=== PATIENT | female | born 1980 | race Caucasian/White ===

== ENCOUNTER → 2016-11-16 | Outpatient (CLI) | payer MEDICAID ==
[2016-11-16 09:19] LABS: Basophils % (A) 0 %; CH 30.1; CHCM 34.4; Eosinophils # (A) 0.1 k/uL (0-0.7); Eosinophils % (A) 1 %; HCT 39.4 % (34.0-46.0); HDW 2.35; HGB 13.6 gm/dL (11.4-16.0); Luc # (Auto) 0.14; Luc % (Auto) 2; Lymphocytes # (A) 2.4 k/uL (1.0-4.8); Lymphocytes % (A) 33 %; MCH 30.3 pg (25.0-35.0); MCHC 34.5 g/dL (31.0-37.0); MCV 87.9 fL (80.0-100.0); Mean Platelet Volume 7.2; Monocytes # (A) 0.4 k/uL (0-1.0); Monocytes % (A) 6 %; Neutrophils # (A) 4.4 k/uL (1.3-7.7); Neutrophils % (A) 59 %; RBC 4.49 m/uL (3.80-5.40); RDW 13.2 % (11.5-15.5); WBC 7.4 k/uL (3.8-10.6); WBC (Perox) 7.45
[2016-11-16 09:24] LABS: ALT 32 U/L (9-52); AST 30 U/L (14-36); Alkaline Phosphatase 60 U/L (38-126); Anion Gap 12 mmol/L; Blood Urea Nitrogen 14 mg/dL (7-17); Calcium 9.6 mg/dL (8.4-10.2); Carbon Dioxide 24 mmol/L (22-30); Chloride 105 mmol/L (98-107); Cholesterol 206 mg/dL (<200); Glucose 85 mg/dL (74-99); HDL Cholesterol 54 mg/dL (40-60); Non-African American GFR(MDRD) >60 (>60 ml/min/1.73 sqM); Potassium 4.2 mmol/L (3.5-5.1); Sodium 141 mmol/L (137-145); Total Bilirubin 0.8 mg/dL (0.2-1.3); Total Protein 7.8 g/dL (6.3-8.2); Triglycerides 118 mg/dL (<150)
== END | disposition home or self-care (01) ==
LOC: LABWHC1 08:51
PROVIDERS: ATTEND Family Medicine
DX: Z00.00 Encounter for general adult medical examination without abnormal findings (principal)
CPT/HCPCS: 36415; 80053; 80061; 84439; 84443; 84480; 85025

== ENCOUNTER → 2017-12-13 | Outpatient (CLI) | payer MEDICAID ==
[2017-12-13 08:56] LABS: Basophils % (A) 0 %; Eosinophils # (A) 0.1 k/uL (0-0.7); Eosinophils % (A) 1 %; HCT 37.1 % (34.0-46.0); HGB 12.9 gm/dL (11.4-16.0); Lymphocytes % (A) 26 %; MCH 29.7 pg (25.0-35.0); MCHC 34.7 g/dL (31.0-37.0); MCV 85.5 fL (80.0-100.0); Mean Platelet Volume 6.9; Monocytes # (A) 0.5 k/uL (0-1.0); Monocytes % (A) 7 %; Neutrophils # (A) 4.9 k/uL (1.3-7.7); Neutrophils % (A) 65 %; Platelet Count 259 k/uL (150-450); RBC 4.34 m/uL (3.80-5.40); RDW 12.5 % (11.5-15.5); WBC 7.5 k/uL (3.8-10.6)
[2017-12-13 10:08] LABS: ALT 32 U/L (9-52); AST 29 U/L (14-36); Albumin 4.3 g/dL (3.5-5.0); Alkaline Phosphatase 52 U/L (38-126); Anion Gap 8 mmol/L; Blood Urea Nitrogen 12 mg/dL (7-17); Carbon Dioxide 26 mmol/L (22-30); Chloride 106 mmol/L (98-107); Cholesterol 203 mg/dL (<200); Glucose 91 mg/dL (74-99); HDL Cholesterol 47 mg/dL (40-60); LDL Cholesterol,Calculated 138 mg/dL (0-99); Potassium 4.3 mmol/L (3.5-5.1); Sodium 140 mmol/L (137-145); Total Bilirubin 0.6 mg/dL (0.2-1.3); Total Protein 7.1 g/dL (6.3-8.2); Triglycerides 91 mg/dL (<150)
[2017-12-13 10:23] LABS: T4, Free (Free Thyroxine) 1.25 ng/dL (0.78-2.19)
== END | disposition home or self-care (01) ==
LOC: LABWHC1 08:04
PROVIDERS: ATTEND Family Medicine
DX: Z00.00 Encounter for general adult medical examination without abnormal findings (principal); E03.9 Hypothyroidism, unspecified
CPT/HCPCS: 36415; 80053; 80061; 84439; 84443; 85025

== ENCOUNTER → 2019-05-22 | Outpatient (CLI) | payer MEDICAID ==
[2019-05-22 18:42] LABS: African American GFR (CKD) 92.7 (60.0-200.0); Albumin 4.9 g/dL (3.80-4.90); Albumin/Globulin Ratio 2.23 (1.60-3.17); Anion Gap 5.2 mmol/L (4.00-12.00); BUN/Creat Ratio 16.67 Ratio (12.00-20.00); Calcium 9.5 mg/dL (8.7-10.3); Carbon Dioxide 28.8 mmol/L (21.6-31.8); Chol/HDL Ratio 4.69; Globulin 2.2 g/dL (1.6-3.3); LDL Cholesterol,Calculated 150.6 mg/dL (0.0-131.0); Total Bilirubin 0.6 mg/dL (0.3-1.2); Total Protein 7.1 g/dL (6.2-8.2); VLDL Calculation 30.4 mg/dL (5.00-40.00)
[2019-05-22 18:50] LABS: T4, Free (Free Thyroxine) 1.4 ng/dL (0.80-1.80)
== END | disposition home or self-care (01) ==
LOC: LABWHC1 09:05
PROVIDERS: ATTEND Family Medicine
DX: Z00.00 Encounter for general adult medical examination without abnormal findings (principal)
CPT/HCPCS: 36415; 80053; 80061; 84439; 84443

== ENCOUNTER → 2019-10-23 | Outpatient (CLI) | payer MEDICAID ==
--- NOTE | 2019-10-23 08:11 | MR ---
MRI CERVICAL SPINE: CLINICAL HISTORY: Neck pain into bilateral shoulders with headache. TECHNIQUE: Multiplanar, multisequence imaging of the cervical spine is performed without IV contrast. COMPARISON: MRI cervical spine July 16, 2014 FINDINGS: Sagittal images of the cervical spine show the craniocervical junction to remain within nor mal limits. The cervical and upper thoracic spinal cord remains normal in caliber and signal. There is persistent generalized AP canal diameter narrowing greatest in the mid cervical spine. The verteb ral body heights remain normal. There is some reversal of normal cervical curvature with grade 1 ret rolisthesis C3 on C4, C4 on C5, and C5 on C6 are all redemonstrated. Mild disc space narrowing C4-C5 level on current study. Bone marrow signal intensity is preserved. Axial images show the C2-C3 level to remain within normal limits. Axial images at C3-C4 level show more prominent left paracentral disc protrusion effacing the anterol ateral thecal sac with additional right foraminal disc protrusion causing asymmetric mild to moderate right greater than left bilateral neural foraminal narrowing. Findings progressed from prior. Axial images at C4-C5 levels show spondylolisthesis with broad-based posterior disc protrusion effaci ng anterior thecal sac and causing mild to moderate right greater than left bilateral neural foramina l narrowing. No significant change from prior. Axial images at C5-C6 levels show spondylolisthesis and broad-based posterior disc protrusion effacin g the anterior thecal sac and causing moderate to advanced bilateral neural foraminal narrowing, no s ignificant change from prior. Axial images at C6-C7 level show more prominent right paracentral/foraminal disc protrusion effacing the anterolateral thecal sac and causing advanced right-sided neural foraminal narrowing. Left-sided neural foramina is patent. Axial images at C7-T1 level are within normal limits. IMPRESSION: Loss of normal cervical curvature with multilevel spondylolisthesis and degenerative marie ges, interval progression of degenerative findings noted C3-C4 and C6-C7 levels from the prior MRI.
== END | disposition home or self-care (01) ==
LOC: RADMRIMAIN 07:11
PROVIDERS: ATTEND Orthopaedic Surgery Orthopaedic Surgery of the Spine
DX: M43.12 Spondylolisthesis, cervical region (principal); M47.812 Spondylosis without myelopathy or radiculopathy, cervical region
CPT/HCPCS: 72141

== ENCOUNTER → 2019-11-12 | Outpatient (CLI) | payer MEDICAID ==
--- NOTE | 2019-11-12 13:07 | P.PAINCN ---
History of Present Illness - Reason for Consult Consult date: 11/12/19 - History of Present Illness This is a 39 years old female, with 2 month history of severe neck pain with radiation to the right upper extremity associated with numbness and tingling sensation, the symptoms started 2 months ago she denies any initiating event, patient reported that her symptoms associated with some weakness in her right upper extremity, she denies any fever or night sweats she denies any change in bowel movement or urination, patient done physical therapy without any benefit, she doesn't chiropractics also without any benefit. Past Medical History Past Medical History: Thyroid Disorder Additional Past Medical History / Comment(s): neck pain History of Any Multi-Drug Resistant Organisms: None Reported Past Surgical History: Cholecystectomy, Uterine Ablation Additional Past Surgical History / Comment(s): , D & C, Past Anesthesia/Blood Transfusion Reactions: Motion Sickness Smoking Status: Never smoker - Past Family History Mother Family Medical History: No Reported History Medications and Allergies Home Medications Medication Instructions Recorded Confirmed Type Ibuprofen [Motrin] 800 mg PO DAILY PRN 06/09/15 11/12/19 History Levothyroxine Sodium [Synthroid] 200 mcg PO DAILY 06/09/15 11/12/19 History Multivitamins, Thera [Multivitamin] 1 tab PO DAILY 06/09/15 11/12/19 History Allergies Allergy/AdvReac Type Severity Reaction Status Date / Time propoxyphene HCl Allergy facial Verified 11/12/19 12:42 [From Darvon] swelling Physical Exam Vitals: Vital Signs Pulse Resp BP 11/12/19 12:43 83 16 141/79 Physical Examinations : -Constitutiona : Cooperative , not in acute distress . -HEENT : nech : supple , no Lymphadenopathy , normal thyroid size . : eyes : no ptosis , no icterus, no photophobia . - neurologic : Cranial nerve II to XII intact , no focal neurological deffecit . -psychatric : alert , oriented X 3 , appropriate affect , intact judgment and insight . -Lymphatic : no Lymphadenopathy . - musculoskeltal : Cervical Spine motor stregnth in the deltoid and biceps, normal right side , normal Left side motor stregnth biceps and the wrist extensors normal right side ,normal left side . motor stregnth in the triceps muscle . normal Right side , normal Left side deep tendon reflexes normal at the biceps , normal at Brachioradialis , normal at triceps. cervical facet loading test= negative Bilaterally Spurling test= positive on the right side Neck distraction test= positive on the right side. Shana sign= positive on the right side. Lumber spine moter stegnth lower extremities ,thigh and legs 5/5 Right side , 5/5 Left side Results Comments: Abiola will the cervical spine= multilevel cervical bulging disc disease, and cervical spondylolisthesis Assessment and Plan Plan: Assessment and plan=1-cervical radiculopathy. 2-cervical bulging disc disease. 3-cervical spondylolisthesis. Patient could benefit from cervical epidural steroid injection at C7-T1 , (right paramedian approach ) Time with Patient: Greater than 30 PQRS Measure Charge Sheet Measure #130: Documentation of Current Meds in Medical Chart: Patient's medications documented in chart Measure #226: Tobacco Use: Screen & Cessation Intervention: Pt not a tobacco user Measure #111: Pneumonia Vaccination: Pneumococcal vaccine NOT administered or previously given Measure #47: Advance Care Plan: Advance care planning discussed & documented, pt chose/unable to give Measure #412: Opioid Treatment Agreement: No documentation of signed opioid treatment agreement Measure #408: Opioid Therapy Follow-up Evaluation: Patient had NO f/u eval minimum every 3 months during opioid therapy Measure #317: Preventitive Care & Scrn High Bld Press & F/U: Pre-hypertensive or hypertensive BP documented, pt will f/u with PCP Measure #128: Body Mass Index (BMI) Screening & Follow-up: BMI documented ABOVE normal parameters - f/u documented Measure #131: Pain Assessment & Follow-up: Pain positive & plan documented, Follow-up scheduled Measure #431: Unhealthy Alcohol Use Preventative Care & Scrn: Patient not identified as an unhealthy alcohol user PQRS Narrative: Smoking Status Never smoker Blood Pressure 141/79 Pain Intensity [Right Lower 5 Neck] Scale Used Numeric (1 - 10) Hx Alcohol Use (MH) Yes Home Medications: Ambulatory Orders Ibuprofen [Motrin] 800 mg PO DAILY PRN 06/09/15 Levothyroxine Sodium [Synthroid] 200 mcg PO DAILY 06/09/15 Multivitamins, Thera [Multivitamin] 1 tab PO DAILY 06/09/15
== END | disposition home or self-care (01) ==
CPT/HCPCS: 99211

== ENCOUNTER 2019-11-26 12:50 | Day surgery (SDC) | payer MEDICAID ==
[2019-11-25 08:57] VITALS: BMI 26.5
[2019-11-26 13:30] VITALS: RESP 16
[2019-11-26 13:31] VITALS: TEMP 97.2
[2019-11-26] MEDS ORDERED: LACTATED RINGERS 1,000 ML IV SCH (13:33)
[2019-11-26] MEDS ORDERED: LIDOCAINE 1% (10MG/ML) FOR IV START INTRADERMA ONE (13:39)
[2019-11-26] MEDS ORDERED: MIDAZOLAM 2 MG/2 ML VIAL ONE (14:00)
[2019-11-26] MEDS ORDERED: DEXAMETHASONE SOD PHOSPHATE 10 MG/ML 1 ML VIAL ONE (14:00)
[2019-11-26] MEDS ORDERED: IOPAMIDOL M200 10 ML VIAL ONE (14:00)
[2019-11-26] MEDS ORDERED: fentaNYL (PF) 50 MCG/ML 2 ML AMP ONE (14:00)
--- NOTE | 2019-11-26 14:23 | P.PCN ---
Date of Procedure: 11/26/19 Procedure(s) Performed: Diagnosis: Cervical radiculopathy Cervical degenerative disc disease POSTOPERATIVE DIAGNOSIS: Diagnoses: Cervical radiculopathy Cervical degenerative disc disease PROCEDURE Cervical Epidural steroid injection under fluoroscopic guidance at the C7-T1 interspace using right paramedian approach Cervical epidurogram ANESTHESIA: Local with 1% lidocaine 3 ml and IV sedation with Versed and fentanyl, sedation time 6 minutes Fluoroscopy was used for the procedure and images were saved in the radiology portion of the chart. EBL: Minimal PROCEDURE INDICATION: The patient presents with cervical radicular symptoms unresponsive to conservative treatment. This is the first cervical epidural steroid injection. PROCEDURE DESCRIPTION / TECHNIQUE: The patient was seen and identified in the preoperative area. Risks, benefits, complications including but not limited to infections ,bleeding ,allergic reaction to the medications ,nerve damage and incomplete pain relief, and alternatives were discussed with the patient. The patient agreed to proceed with the procedure and signed the consent. IV was started, and vital signs were stable. Patient was taken to the OR and time out was completed. The patient was placed in the prone position on procedure table and a pillow was placed under the chest area. The cervical area was prepped and draped in the usual sterile fashion. Conscious sedation was used during the procedure to decrease patients anxiety. Vital signs was monitored during the entire procedure. Using anterior-posterior fluoroscopy, the C7-T1 interlaminar space was identified and the skin over this site was marked and then infiltrated with 1% lidocaine subcutaneously. Subsequently, a 20-gauge Tuohy epidural needle was inserted and advanced toward the epidural space using the loss of resistance technique and guided by AP and 50 oblique fluoroscopy. The correct needle position in the epidural space was verified. After negative aspiration for blood and CSF and in the absence of paresthesias, Isovue 200 2 mL's was injected under live fluoroscopy with good epidural spread. After negative aspiration, a 5 ml mixture containing 10 mg of dexamethasone, 3 mL of preservative free normal saline and 1 mL of 1% lidocaine was injected. Needle was withdrawn intact, skin was cleansed, and bandages were applied. COMPLICATIONS: None DISPOSITION / PLANS: The patient was placed in a supine position and transferred to the recovery area in a stable condition for observation. There was no evidence of lower extremity motor or sensory deficit after the procedure. Patient was discharged from the recovery room after meeting discharge criteria. Home discharge instructions were given to the patient by the staff. The patient will be scheduled a follow-up in the clinic in 2-4 weeks.
--- NOTE | 2019-11-26 14:33 | FL ---
EXAMINATION TYPE: FL guided pain mgmt statistic DATE OF EXAM: 11/26/2019 HISTORY: Fluoroscopy time 5 seconds of fluoroscopy provided. IMPRESSION: 1. Fluoroscopy time.
[2019-11-26 14:34] VITALS: BP 122/74; PULSE 68
[2019-11-26] MEDS ORDERED: IV FLUID CONTINUATION 1,000 ML IV ONE (14:36)
== END 2019-11-26 14:51 | disposition home or self-care (01) ==
LOC: ORPAIN 12:50
PROVIDERS: ATTEND Anesthesiology
DX: M50.10 Cervical disc disorder with radiculopathy, unspecified cervical region (principal)
CPT/HCPCS: 81025; 62321; J2250; J1100; J3010; Q9966

== ENCOUNTER → 2019-12-28 | Outpatient (CLI) | payer MEDICAID ==
[2019-12-28 16:37] LABS: Appearance,Urine Clear (Clear); Bilirubin,Urine Negative (Negative); Blood,Urine Negative (Negative); Color,Urine Colorless; Glucose,Urine (UA) Negative (Negative); Ketones,Urine Negative (Negative); Leukocyte Esterase,Urine Negative (Negative); Nitrite,Urine Negative (Negative); Protein,Urine Negative (Negative); Specific Gravity,Urine 1.003 (1.001-1.035); Urobilinogen,Urine <2.0 mg/dL (<2.0)
[2019-12-28 16:41] LABS: African American GFR (CKD) >90 (>60 ml/min/1.73 sqM); Anion Gap 8 mmol/L; Blood Urea Nitrogen 13 mg/dL (7-17); Calcium 9.5 mg/dL (8.4-10.2); Carbon Dioxide 25 mmol/L (22-30); Chloride 103 mmol/L (98-107); Glucose 92 mg/dL (74-99); Non-African American GFR(CKD) >90 (>60 ml/min/1.73 sqM); Sodium 136 mmol/L (137-145)
[2019-12-28 16:42] LABS: Basophils % (A) 1 %; Eosinophils # (A) 0.1 k/uL (0-0.7); Eosinophils % (A) 1 %; HCT 38.1 % (34.0-46.0); HGB 12.4 gm/dL (11.4-16.0); Lymphocytes # (A) 2.4 k/uL (1.0-4.8); Lymphocytes % (A) 29 %; MCH 28.8 pg (25.0-35.0); MCHC 32.7 g/dL (31.0-37.0); Mean Platelet Volume 7.4; Monocytes # (A) 0.4 k/uL (0-1.0); Monocytes % (A) 5 %; Neutrophils # (A) 5.3 k/uL (1.3-7.7); Neutrophils % (A) 63 %; Platelet Count 281 k/uL (150-450); RBC 4.33 m/uL (3.80-5.40); RDW 12.3 % (11.5-15.5); WBC 8.4 k/uL (3.8-10.6)
--- NOTE | 2019-12-28 16:46 | XR ---
EXAMINATION TYPE: XR chest 2V DATE OF EXAM: 12/28/2019 CLINICAL HISTORY: Preoperative clearance for cervical spine surgery. TECHNIQUE: Frontal and lateral views of the chest are obtained. COMPARISON: 04/14/2012 chest radiograph. FINDINGS: The cardiomediastinal silhouette is within normal limits for size. Pulmonary vasculature i s normal. There is no focal air space opacity, pleural effusion, or pneumothorax seen. The osseous st ructures are intact. IMPRESSION: No acute cardiopulmonary process.
[2019-12-28 16:58] LABS: INR 0.9 (<1.2); Partial Thromboplastin Time 23.4 sec (22.0-30.0); Prothrombin Time 9.5 sec (9.0-12.0)
== END | disposition home or self-care (01) ==
LOC: LABPAT 15:44
PROVIDERS: ATTEND Orthopaedic Surgery Orthopaedic Surgery of the Spine
DX: Z01.818 Encounter for other preprocedural examination (principal)
CPT/HCPCS: 36415; 71046; 80048; 81003; 85025; 85610; 85730; 93005

== ENCOUNTER 2020-01-13 12:44 | Observation (INO) | payer MEDICAID ==
[2020-01-11 14:30] VITALS: BMI 26.8
[~2020-01-13 12:44] MED LIST: FAMOTIDINE 20 MG/2 ML VIAL IV PRN; ONDANSETRON 4 MG/2 ML VIAL IVP PRN; ceFAZolin 1,000 MG in SODIUM CHLORIDE 0.9% IRRIGATIO 1,000 ML IRRIGATION ONE
[2020-01-13] MEDS ORDERED: ONDANSETRON 4 MG/2 ML VIAL ONE (13:17)
[2020-01-13] MEDS: LACTATED RINGERS 1,000 ML IV SCH ×2 (13:19→19:20)
[2020-01-13] MEDS ORDERED: LIDOCAINE 1% (10MG/ML) FOR IV START IV ONE (13:19)
[2020-01-13 13:31] LABS: Glucose,Whole Blood 99 mg/dL (75-99)
[2020-01-13] MEDS ORDERED: MIDAZOLAM 2 MG/2 ML VIAL IV ONE (13:37)
[2020-01-13] MEDS ORDERED: SCOPOLAMINE 1.5MG/72HR PATCH TRANSDERM ONE (13:37)
[2020-01-13] MEDS ORDERED: LIDOCAINE 1% INJ 10MG/ML (20 ML MDV) ONE (14:18)
[2020-01-13] MEDS ORDERED: DEXAMETHASONE SOD PHOSPHATE 10 MG/ML 1 ML VIAL ONE (14:18)
[2020-01-13] MEDS ORDERED: fentaNYL (PF) 50 MCG/ML 2 ML AMP ONE (14:18)
[2020-01-13] MEDS ORDERED: ROCURONIUM BROMIDE 10 MG/ML 5 ML VIAL IV ONE (14:18)
[2020-01-13] MEDS ORDERED: KETAMINE 10 MG/ML 20 ML VIAL ONE (14:18)
[2020-01-13] MEDS ORDERED: HYDROmorphone (PF) 1 MG/ML ONE (14:18)
[2020-01-13] MEDS ORDERED: PROPOFOL 10 MG/ML 20 ML VIAL IV ONE (14:18)
[2020-01-13] MEDS ORDERED: MIDAZOLAM 2 MG/2 ML VIAL ONE (14:18)
[2020-01-13] MEDS ORDERED: SUCCINYLCHOLINE CHLORIDE 100 MG/5 ML SYR IV ONE (14:18)
[2020-01-13] MEDS ORDERED: GELATIN SPONGE,ABSORB (LARGE) 1 EACH SPONGE MISCELLANE ONE (15:26)
[2020-01-13] MEDS ORDERED: LIDOCAINE 0.5%-EPI 1:200,000 50 ML VIAL SQ ONE ×2 (15:27)
[2020-01-13] MEDS ORDERED: THROMBIN (BOVINE) 5,000 UNIT VIAL TOPICAL ONE (15:27)
--- NOTE | 2020-01-13 15:29 | XR ---
EXAMINATION TYPE: XR cervical spine 1V DATE OF EXAM: 01/13/2020 COMPARISON: MRI cervical spine October 23, 2019 HISTORY: Neck pain. TECHNIQUE: Single crosstable lateral view of cervical spine is obtained intraoperatively. FINDINGS: Exam is not for diagnostic purposes for presurgical planning. Metallic pointer is noted at the C4-C5 disc space level. IMPRESSION: As above.
[2020-01-13] MEDS ORDERED: LACTATED RINGERS 1,000 ML IV ONE (16:28)
[2020-01-13] MEDS ORDERED: ONDANSETRON 4 MG/2 ML VIAL IVP PRN (16:52)
[2020-01-13] MEDS ORDERED: BENZOCAINE/MENTHOL LOZENG 1 EACH LOZENGE MUCOUS MEM PRN (16:52)
[2020-01-13] MEDS ORDERED: ACETAMINOPHEN TAB 325 MG TAB PO PRN (16:52)
[2020-01-13] MEDS ORDERED: HYDROmorphone 0.5 MG/0.5 ML SYRINGE IVP PRN (16:52)
[2020-01-13] MEDS ORDERED: HYDROmorphone 1 MG/ML 1 ML SYRINGE IVP PRN (16:52)
--- NOTE | 2020-01-13 16:57 | P.OP ---
Date of Procedure: 01/13/20 Preoperative Diagnosis: Herniated nucleus pulposis C3 4 C4 5 C5 6 C6 7, spondylolisthesis C3 4, early cervical myelopathy, upper extremity radiculopathy, neck pain, upper extremity weakness Postoperative Diagnosis: Same Anesthesia: GETA Pathology: none sent Condition: stable Disposition: PACU Description of Procedure: BRIEF OPERATIVE NOTE Preoperative Diagnosis:Herniated nucleus pulposis C3 4 C4 5 C5 6 C6 7, spondylolisthesis C3 4, early cervical myelopathy, upper extremity radiculopathy, neck pain, upper extremity weakness Postoperative Diagnosis: Same Procedure: Anterior cervical decompression with discectomy and fusion C3 4 C4 5 C5 6 C6 7 Placement of interbody graft C3 4 C4 5 C5 6 C6 7 Application of anterior cervical plate C3 4 567 Surgeon: Dr. Baltazar Film Sound Engineer: Toby Chapman is present throughout the entire the case persistence during positioning, dissection, exposure, visualization, and all crucial elements of the case as well as closure. Anesthesia: General anesthesia per Estimated blood loss: Approximately 30 mL Complications: None apparent Components implanted: K2M Patillas anterior cervical plate system with Vikos interbody allograft bone graft and 1 mL of DBS bone putty Disposition: To recovery room in good stable condition. OPERATIVE INDICATIONS The patient has had long-standing issues in their neck and upper extremities. She's been having significant worsening of her symptoms at her neck and her extremity over the past several months. This has kept her from doing many activities that she enjoys doing and posterior significant pain. The patient has been through conservative treatment. She is not having any prolonged benefit despite aggressive conservative care. We discussed various treatment options including surgery, and the patient wishes to proceed with surgery We discussed the risk, patient's alternatives and benefits of surgery including but not limited to, risk of bleeding risk of infection, risk of need for further surgery, risk of decreased, loss of motion, muscle function, malunion nonunion, hardware failure, nerve damage, paralysis, heart attack, and . OPERATIVE SUMMARY After discussing all the risks, patient alternatives and benefits at length, the patient elected to proceed with surgical intervention, signed informed consent, and presented for their procedure. The patient was seen and examined in the preoperative holding area and the surgical site was marked. The patient was given antibiotics and brought to the operating room. The patient was positioned on the operating room table in a supine position being careful to pad any bony prominences and pressure points. The patient was sedated and intubated by anesthesia in standard fashion. Once the airway and C- spine were stabilized the patient's arms were padded and tucked at her side, with her shoulders gently taped. The head was placed in a donut pad with the neck in good neutral alignment and position. We were careful to maintain the patient's cervical spine and good neutral alignment and position throughout. The patient was prepped and draped in a normal standard fashion. An appropriate timeout and keystone protocol performed. We were able to proceed with the surgery. The local wound area was infiltrated with local anesthetic. An incision was made transversely approximately 2-1/2 cm over the appropriate levels at the level of C5. Dissection was taken down subcutaneously to the level of the platysma which was split in line with its fibers. Dissection was taken with a carotid approach, with the trachea and esophagus medial and the carotid sheath laterally. We dissected down to the anterior surface of the vertebral bodies. With the horizontal incision I was able to expose from C3 to C7 Intraoperative x-ray was taken which showed a marker at the appropriate level at C4 5. With the appropriate level positively confirmed, we were able to proceed with discectomy at the appropriate levels. All of the operative levels were exposed appropriately from C3 to C7. The patient had all their twitches back, and there was no evidence of recurrent laryngeal issue. The wound was copiously irrigated and suctioned dry as had been done periodically throughout the case. At the appropriate level/levels, starting at C3 4 and then moving C4 5 and then C5 6 and C6 7 I established an annulotomy with an 11 blade scalpel. A discectomy was performed with a combination of pituitary rongeurs, curettes, a high-speed bur, and Kerrison rongeurs. The posterior longitudinal ligament was taken down as were any posterior osteophytes. At each level there was significant disc herniation with compression of the cord and foraminal encroachment. As able to remove the disc the posterior longitudinal ligament to get excellent central and bilateral foraminal decompression. I was able to remove any extruded disc fragments particular at C5 6 and C6 7. This gave good central and bilateral foraminal decompression. There is no evidence of any dural tear or leak. The endplates were prepared with a high-speed bur. With the endplates in good parallel position, I was able to size for the appropriate size interbody graft. The wound was irrigated and suctioned dry the graft was prepared and malleted into position. It had good alignment and position with the anterior surface flush with the anterior surface of the vertebral bodies. This was done similarly the appropriate levels from C3 4 and then moving caudad down C4 5 than 56 and 67. With the grafts intact, I was able to measure and contour and appropriate sized plate. The plate was positioned at the midline over the appropriate levels from C3 to C7 with a 77 mm plate. Screw holes were established with a hand drill and drill guide. Screws were placed in good alignment and position with excellent bony purchase. They were seated under the locking device. The construct was checked and found to be stable. Intraoperative x-ray was taken which showed good alignment and position of the implants at the appropriate levels from C3 to C7. There was no evidence of any dural tear or leak. Good hemostasis was maintained. The wound was copiously irrigated and suctioned dry as had been done periodically throughout the case. The platysma was closed with absorbable suture. The subcutaneous tissue was closed. The subcuticular tissue was closed with absorbable suture. The wound was cleaned and dried and dressed appropriately. A soft cervical collar was placed appropriately. The patient was woken up by anesthesia, extubated, transferred back gently to their hospital bed and brought to the recovery room in good stable condition. The patient will be admitted to the hospital for appropriate postoperative care, medical management and monitoring. We will continue to follow them closely about the postoperative course.
[2020-01-13] MEDS: HYDROmorphone 0.5 MG/0.5 ML SYRINGE IVP PRN ×4 (17:05→17:35)
[2020-01-13] MEDS ORDERED: ONDANSETRON 4 MG/2 ML VIAL IVP ONE (17:23)
--- NOTE | 2020-01-13 17:45 | XR ---
EXAMINATION TYPE: XR cervical spine 1V DATE OF EXAM: 01/13/2020 COMPARISON: Today HISTORY: Surgery TECHNIQUE: Single view FINDINGS: A single lateral view shows placement of a plate with multiple screws fusing anteriorly the cervical spine from C3 to C7. Vertebra have normal alignment. IMPRESSION: No complicating process seen.
[2020-01-13] MEDS: SODIUM CHLORIDE 0.9% 1,000 ML IV SCH (20:13)
[2020-01-13 23:41] VITALS: PULSE 68
[2020-01-14] MEDS: HYDROcodone/APAP 5-325MG 1 EACH TAB PO PRN ×2 (00:18→04:16)
[2020-01-14 04:46] VITALS: BP 137/87; RESP 18; TEMP 97.8
[2020-01-14] MEDS ORDERED: LEVOTHYROXINE 100 MCG TAB PO SCH (06:30)
--- NOTE | 2020-01-14 07:06 | P.DS ---
Providers Date of admission: 01/13/20 21:07 Attending physician: Megan Baltazar Primary care physician: Anne Marie [facility] Course: The patient presented on the day of admission as per their operative note. She had significant changes her cervical spine at multiple levels and was having severe significant radiculopathy. She underwent her anterior cervical decompression with discectomy and fusion from C3 to C7 yesterday as per her operative note. She says she is doing well. Her neck is sore and she has some soreness in her right arm but overall she has been improving and mobile and making good progress. She has been able to have some soft foods. She is voiding freely. Physical Exam The incision site is clean dry and intact. There is no erythema no drainage. There is no purulence no evidence of infection. Her neck is soft and supple wit hout any drainage. There is no signal with swelling. Abdomen soft and nontender. Chest has good excursion with deep inspiration and expiration. The patient has active and passive range of motion intact at the upper and lower extremities. There is no acute change in neurologic status. She has good motion in her bilateral upper extremities with good strength. Hospital Course Postoperative day 1 status post anterior cervical decompression with discectomy and fusion C3 4 C4 5 C5 6 C6 7 for her severe spinal stenosis with disc herniation upper extremity radiculopathy and neck pain. Patient is making good progress. The patient has been making good progress postoperatively. They have completed the prophylactic antibiotics without any signs or symptoms of infection. Her neck is soft and supple. The patient has been able to advance their diet, and is tolerating diet adequately. The pain was initially controlled with IV medications and is now controlled appropriately with oral medications. The patient has been able to increase their mobilization. The patient has progressed appropriately. I think they are in good stable condition for discharge today. They will be sent home with appropriate prescriptions. I answered their questions to the best of my ability in a language that they can understand and they are agreeable with the plan. They will follow up as directed in approximately 2 weeks or sooner if she is having any problems. Patient Condition at Discharge: Good Plan - Discharge Summary Discharge Rx Participant: Yes New Discharge Prescriptions: New HYDROcodone/APAP 5-325MG [Mears 5] 1 each PO Q4HR PRN #42 tab PRN Reason: Pain No Action Multivitamins, Thera [Multivitamin] 1 tab PO DAILY Levothyroxine Sodium [Synthroid] 200 mcg PO MOTUWETHFRSA Ibuprofen [Motrin] 800 mg PO DAILY PRN PRN Reason: Pain Discharge Medication List Ibuprofen [Motrin] 800 mg PO DAILY PRN 06/09/15 [History] Levothyroxine Sodium [Synthroid] 200 mcg PO MOTUWETHFRSA 06/09/15 [History] Multivitamins, Thera [Multivitamin] 1 tab PO DAILY 06/09/15 [History] HYDROcodone/APAP 5-325MG [Mears 5] 1 each PO Q4HR PRN #42 tab 01/14/20 [Rx] Follow up Appointment(s)/Referral(s): Megan Baltazar DO [Doctor of Osteopathic Medicine] - 2 Weeks Activity/Diet/Wound Care/Special Instructions: Keep site clean. May shower with waterproof Tegaderm intact. Do not soak in a tub. After 72 hours postoperatively, patient May remove dressing and then may shower with area uncovered. Leave Steri-Strips intact and allow them to fray off on their own. May ambulate as tolerated. Avoid heavy or rigorous activity. No repetitive bending twisting or lifting. No overhead work. Discharge Disposition: HOME SELF-CARE
[2020-01-14] MEDS: SODIUM CHLORIDE 0.9% 1,000 ML IV SCH (07:44)
[2020-01-14] MEDS ORDERED: MULTIVITAMINS, THERA 1 EACH TAB PO SCH (09:00)
[2020-01-14] MEDS ORDERED: SENNOSIDES-DOCUSATE SODIUM 1 EACH TAB PO SCH ×2 (09:00)
== END 2020-01-14 09:26 | disposition home or self-care (01) ==
LOC: OR 12:44 → 4SSUR 17:06 → OR 21:07
PROVIDERS: ADMIT Orthopaedic Surgery Orthopaedic Surgery of the Spine; ATTEND Orthopaedic Surgery Orthopaedic Surgery of the Spine
DX: M50.11 Cervical disc disorder with radiculopathy, high cervical region (principal); M43.12 Spondylolisthesis, cervical region; M25.78 Osteophyte, vertebrae; M79.12 Myalgia of auxiliary muscles, head and neck; M48.02 Spinal stenosis, cervical region; R29.2 Abnormal reflex; E03.9 Hypothyroidism, unspecified; Z97.3 Presence of spectacles and contact lenses; Z90.49 Acquired absence of other specified parts of digestive tract; Z98.890 Other specified postprocedural states; Z82.49 Family history of ischemic heart disease and other diseases of the circulatory system; E78.5 Hyperlipidemia, unspecified; R00.1 Bradycardia, unspecified; Z79.890 Hormone replacement therapy; Z88.5 Allergy status to narcotic agent
CPT/HCPCS: 22600; 22614 ×3; 22551; 22552 ×3; 22846; 20931; 94760; 81025; 86900; 86901; 86850; 72020; 36415; G0378 ×2; C1713 ×2; C1762 ×2; J2250; J1100; J0690 ×3; J2405; J2001; J3010; J1170 ×2; J0330; J2704

== ENCOUNTER → 2021-07-07 | Outpatient (CLI) | payer MEDICAID ==
[2021-07-08 00:54] LABS: % Iron Saturation 26.72 (12.00-45.00); T4, Free (Free Thyroxine) 1.96 ng/dL (0.800-1.800)
[2021-07-08 08:56] LABS: Gliadin AB IgA, Deaminated NEGATIVE (NEGATIVE); Gliadin AB IgA, Unit 0.4 U/mL; Gliadin AB IgG, Deaminated NEGATIVE (NEGATIVE); Gliadin AB IgG, Unit <0.4 U/mL; Tis Transglutaminase IgA Unit <0.5 AI; Tis Transglutaminase IgG Unit <0.8 U/mL; Tissue Transglutaminase IgA NEGATIVE (NEGATIVE); Tissue Transglutaminase IgG NEGATIVE (NEGATIVE)
== END | disposition home or self-care (01) ==
LOC: LABWHC1 14:25
PROVIDERS: ATTEND Internal Medicine Endocrinology, Diabetes & Metabolism
DX: E06.3 Autoimmune thyroiditis (principal); R53.83 Other fatigue
CPT/HCPCS: 36415; 82306; 82607; 82728; 83516; 83540; 83550; 83970; 84439; 84443; 84480

== ENCOUNTER → 2022-02-21 | Outpatient (CLI) | payer MEDICAID ==
--- NOTE | 2022-02-22 11:04 | MR ---
EXAMINATION TYPE: MR cervical spine wo con DATE OF EXAM: 02/21/2022 COMPARISON: 2019 HISTORY: CERVICALGIA, RADICULOPATHY, CERVICAL CONTRAST: Performed utilizing 0 mL intravenous Gadavist gadolinium contrast. TECHNIQUE: Multiplanar multiecho imaging on a 3.0 Nayely magnet is performed through the cervical spin e. FINDINGS: The craniovertebral junction is normal. Vertebral body alignment is normal. Anterior cer vical fusion is evident C3-C7. Some mild left foraminal narrowing is present C4-5. Some moderate foraminal narrowing is present C5-6 C6-7 bilaterally. C7-T1: No focal disc herniation or significant disc bulge is evident. No spinal canal stenosis or n eural foraminal stenosis is present. C6-7: No focal disc herniation or significant disc bulge is evident. No spinal canal stenosis or tami ral foraminal stenosis is present. C5-6: No focal disc herniation or significant disc bulge is evident. No spinal canal stenosis or tami ral foraminal stenosis is present. C4-5: No focal disc herniation or significant disc bulge is evident. No spinal canal stenosis or tami ral foraminal stenosis is present. C3-4: No focal disc herniation or significant disc bulge is evident. No spinal canal stenosis or tami ral foraminal stenosis is present. C2-3: Minimal disc bulge may be present seen to 3 with anterior thecal sac contact. No cord contact i s evident. No spinal canal stenosis or neural foraminal stenosis.. IMPRESSIONS: 1. Status post anterior cervical fusion. 2. Improved anterior thecal sac impression through the cervical fusion levels. No significant residua l disc bulging or spinal canal stenosis is evident.
== END | disposition home or self-care (01) ==
LOC: RADMRIMAIN 12:58
PROVIDERS: ATTEND Orthopaedic Surgery Orthopaedic Surgery of the Spine
DX: M79.12 Myalgia of auxiliary muscles, head and neck (principal); Z47.89 Encounter for other orthopedic aftercare; Z98.1 Arthrodesis status
CPT/HCPCS: 72141

== ENCOUNTER → 2023-01-16 | Outpatient (CLI) | payer MEDICAID ==
[2023-01-16 11:28] LABS: Basophils % (A) 0 %; Eosinophils # (A) 0.1 k/uL (0-0.7); Eosinophils % (A) 1 %; HCT 40.7 % (34.0-46.0); HGB 13.8 gm/dL (11.4-16.0); Lymphocytes # (A) 2.5 k/uL (1.0-4.8); Lymphocytes % (A) 27 %; MCH 29.7 pg (25.0-35.0); MCV 87.4 fL (80.0-100.0); Mean Platelet Volume 7.2; Monocytes # (A) 0.5 k/uL (0-1.0); Monocytes % (A) 5 %; Neutrophils % (A) 65 %; Platelet Count 306 k/uL (150-450); RBC 4.66 m/uL (3.80-5.40); WBC 9.3 k/uL (3.8-10.6)
[2023-01-16 16:57] LABS: ALT 22 U/L (8-44); AST 26 U/L (13-35); Alkaline Phosphatase 53 U/L (41-126); BUN/Creat Ratio 13.12 Ratio (12.00-20.00); Blood Urea Nitrogen 10.5 mg/dL (9.0-27.0); Calcium 9.7 mg/dL (8.7-10.3); Carbon Dioxide 22.6 mmol/L (21.6-31.8); Chloride 109 mmol/L (96-109); Chol/HDL Ratio 4.72 Ratio; Globulin 2.5 d/dL (1.6-3.3); Glucose 85 mg/dL (70-110); LDL Cholesterol,Calculated 138.1 mg/dL (0.0-131.0); Potassium 4.2 mmol/L (3.5-5.5); Sodium 145 mmol/L (135-145); Total Bilirubin 0.5 mg/dL (0.3-1.2); Total Protein 7.5 d/dL (6.2-8.2)
== END | disposition home or self-care (01) ==
LOC: LABWHC1 08:58
PROVIDERS: ATTEND Family Medicine
DX: Z00.00 Encounter for general adult medical examination without abnormal findings (principal); E03.9 Hypothyroidism, unspecified; E55.9 Vitamin D deficiency, unspecified
CPT/HCPCS: 36415; 80053; 80061; 82306; 84443; 84481; 85025

== ENCOUNTER → 2023-05-29 | Outpatient (CLI) | payer MEDICAID ==
--- NOTE | 2023-05-30 10:34 | MM ---
Reason for Exam: Screening (asymptomatic). Last mammogram was performed 1 year(s) and 11 month(s) ago. Patient History: Menarche at age 11. First Full-Term at age 26. Patient has history of breast feeding. Risk Values: Libby 5 year model risk: 0.9%. NCI Lifetime model risk: 10.7%. Prior Study Comparison: 04/05/2015 Bilateral Screening Mammogram, [facility]. 04/19/2015 Bilateral Diagnostic Mammogram, [facility]. 06/15/2021 Bilateral Screening Mammogram, [facility]. Tissue Density: The breast tissue is heterogeneously dense. This may lower the sensitivity of mammography. Findings: Analyzed By CAD. There is no suspicious group of microcalcifications or new suspicious mass. Benign-appearing calcifications bilaterally. Overall Assessment: Benign, BI-RAD 2 Management: Screening Mammogram of both breasts in [address] [facility] will attempt to contact patient to return for supplemental views and ultrasound if indicated. Patient should continue monthly self-breast exams. A clinical breast exam by your physician is recommended on an annual basis. This exam should not preclude additional follow-up of suspicious palpable abnormalities. Note on Libby scores and lifetime risk: 1. A Libby score greater than 3% is considered moderate risk. If this is the case, consider specialist referral to assess eligibility for a risk reducing agent. 2. If overall lifetime risk for the development of breast cancer is 20% or higher, the patient may qualify for future screening with alternating mammogram and breast MRI. Electronically signed and approved by: Narendra Vázquez DO
== END ==
LOC: RADMAMWWP 12:35
PROVIDERS: ATTEND Obstetrics & Gynecology
DX: Z12.31 Encounter for screening mammogram for malignant neoplasm of breast (principal)
CPT/HCPCS: 77063; 77067

== ENCOUNTER 2024-09-14 14:41 | Emergency (ER) | payer MEDICAID ==
[2024-09-14 14:47] VITALS: TEMP 97.5
[2024-09-14] MEDS: SODIUM CHLORIDE 0.9% 1,000 ML IV ONE (15:22)
[2024-09-14] MEDS: PANTOPRAZOLE 40 MG/10 ML VIAL IVP STA (15:22)
[2024-09-14] MEDS: ONDANSETRON 4 MG/2 ML VIAL IVP STA (15:22)
[2024-09-14 15:33] LABS: Basophils # (A) 0.04 10*3/uL (0.00-0.10); Basophils % (A) 0.4 %; Eosinophils # (A) 0.07 10*3/uL (0.04-0.35); Eosinophils % (A) 0.7 %; HCT 40.8 % (37.2-46.3); HGB 14.1 g/dL (12.0-15.0); Lymphocytes # (A) 3.03 10*3/uL (0.90-5.00); Lymphocytes % (A) 28.6 %; MCH 29.3 pg (27.0-32.0); MCHC 34.6 g/dL (32.0-37.0); MCV 84.8 fL (80.0-97.0); Mean Platelet Volume 9.4 fL (9.5-12.2); Monocytes # (A) 0.74 10*3/uL (0.20-1.00); Neutrophils # (A) 6.67 10*3/uL (1.80-7.70); Platelet Count 314 10*3/uL (140-440); RBC 4.81 10*6/uL (4.10-5.20); RDW 12.3 % (11.5-14.5); WBC 10.58 10*3/uL (4.50-10.00)
[2024-09-14 15:52] LABS: ALT 43 U/L (4-34); AST 43 U/L (14-36); African American GFR (CKD) >90 (>60 ml/min/1.73 sqM); Alkaline Phosphatase 58 U/L (38-126); Amylase 60 U/L (30-110); Anion Gap 11 mmol/L; Blood Urea Nitrogen 14 mg/dL (7-17); Calcium 9.9 mg/dL (8.4-10.2); Carbon Dioxide 22 mmol/L (22-30); Chloride 106 mmol/L (98-107); Glucose 115 mg/dL (74-99); Lipase 175 U/L (23-300); Non-African American GFR(CKD) >90 (>60 ml/min/1.73 sqM); Potassium 3.7 mmol/L (3.5-5.1); Sodium 139 mmol/L (137-145); Total Bilirubin 0.9 mg/dL (0.2-1.3); Total Protein 8.3 g/dL (6.3-8.2)
[2024-09-14 15:54] LABS: HCG,Qualitative Serum Not Detected
[2024-09-14 16:37] LABS: Appearance,Urine Cloudy (Clear); Bacteria,Urine Rare /hpf; Bilirubin,Urine Negative (Negative); Blood,Urine Negative (Negative); Color,Urine Yellow; Glucose,Urine (UA) Negative (Negative); Ketones,Urine Negative (Negative); Leukocyte Esterase,Urine Negative (Negative); Mucus,Urine Rare /hpf; Nitrite,Urine Negative (Negative); PH, Urine 5.5 (5.0-8.0); Protein,Urine Negative (Negative); RBC,Urine 1 /hpf (0-5); Specific Gravity,Urine 1.029 (1.001-1.035); Squamous Epithelial Cell,Urine 12 /hpf (0-4); Urobilinogen,Urine <2.0 mg/dL (<2.0); WBC,Urine 2 /hpf (0-5)
--- NOTE | 2024-09-14 18:22 | CT ---
EXAMINATION TYPE: CT abdomen pelvis w con DATE OF EXAM: 09/14/2024 5:48 PM COMPARISON: None. CLINICAL INDICATION: Female, 44 years old with history of abdominal pain. RLQ/suprapubic; abdominal p ain. RLQ/suprapubic TECHNIQUE: Axial CT abdomen pelvis w con;Sagittal and coronal reformats were created on a separate w orkstation. Contrast used:80 ml mL of Isovue 300 with IV Contrast, (none if empty) Oral contrast used: without Oral Contrast (none if empty) CT DLP: 828.9 mGycm, Automated exposure control for dose reduction was used. FINDINGS: LOWER CHEST: Unremarkable ABDOMEN LIVER: Unremarkable GALLBLADDER AND BILE DUCTS: Gallbladder is surgically absent with mild intrahepatic and extra hepatic biliary dilatation likely physiologic and a postcholecystectomy change. No evidence of choledocholit hiasis. PANCREAS: Unremarkable no evidence for ductal dilation SPLEEN: Unremarkable. ADRENAL GLANDS: Unremarkable. KIDNEYS AND URETERS: No evidence of hydronephrosis or obstructing renal calculus. The ureters are unr emarkable. Nonobstructing right 4 mm contrast. No left renal calculi. PELVIS BLADDER: No evidence for wall thickening or mass given limitations of exam. REPRODUCTIVE: Dominant follicle in the right ovary measuring up to 20 mm. ABDOMEN & PELVIS STOMACH AND BOWEL: No evidence of bowel obstruction. The appendix is normal. . Mild inflammation marie ges around the ascending colon series 201 image 50 around what is what is thought to be a diverticula . PERITONEUM/RETROPERITONEUM: No evidence of pneumoperitoneum or free fluid. VASCULATURE: No evidence of aortic aneurysm. MUSCULOSKELETAL: No acute osseous abnormalities LYMPH NODES: No gross evidence for lymphadenopathy. SOFT TISSUE/ABDOMINAL WALL: Unremarkable IMPRESSION: 1. Mild inflammation along the ascending colon. No evidence for organizing fluid collection or free air. Findings suggests uncomplicated diverticulitis. Short-term follow-up recommended. 2. The appendix is normal and situated next the right ovary. Dominant follicle in the right ovary me asuring up to 21 mm. 3. Nonobstructing right renal calculus. 4. No hydronephrosis. 5. Postcholecystectomy changes with physiologic dilation of the extrahepatic and central genetic nandini iary system. [facility], , 09/14/2024 6:19 PM
--- NOTE | 2024-09-14 19:00 | ED ---
General Adult HPI - General Chief complaint: Abdominal Pain Stated complaint: abd pain Time Seen by Provider: 09/14/24 15:05 Source: patient, RN notes reviewed, old records reviewed Mode of arrival: ambulatory Limitations: no limitations - History of Present Illness Initial comments: 44-year-old female presents emergency department complaining of right-sided abdominal pain. States started last night. Was in the suprapubic region right lower quadrant with associated nausea. No emesis. No diarrhea or constipation. States today she is still feeling just uneasy and queasy. Spoke with her surgeon Dr. Moreno who recommended coming to the ER for evaluation. Denies any vaginal discharge or bleeding. Denies any urinary complaints. Denies any constipation or diarrhea. Denies any nausea or vomiting currently. Does have a history of a cholecystectomy. States she is not . - Related Data Home Medications Medication Instructions Recorded Confirmed Ibuprofen [Motrin] 800 mg PO DAILY PRN 06/09/15 01/11/20 Levothyroxine Sodium [Synthroid] 200 mcg PO MOTUWETHFRSA 06/09/15 01/11/20 Multivitamins, Thera [Multivitamin] 1 tab PO DAILY 06/09/15 01/11/20 Previous Rx's Medication Instructions Recorded HYDROcodone/APAP 5-325MG [[place] 5] 1 each PO Q4HR PRN #42 tab 01/14/20 Amoxic-Pot Clav 875-125Mg 1 tab PO Q12HR 10 Days #20 tab 09/14/24 [Augmentin 875-125] Dicyclomine [Bentyl] 10 mg PO TID PRN 7 Days #21 capsule 09/14/24 Allergies Allergy/AdvReac Type Severity Reaction Status Date / Time propoxyphene HCl Allergy facial Verified 09/14/24 14:47 [From Darvon] swelling Review of Systems ROS Statement: Those systems with pertinent positive or pertinent negative responses have been documented in the HPI. Review of Systems: CONST: Denies fever EYES: Denies blurry vision ENT: Denies nasal congestion C/V: Denies Chest pain RESP: Denies shortness of breath GI: Endorses right-sided abdominal pain : Denies dysuria SKIN: Denies rash. MSK: Denies joint pain. NEURO: Denies headache ROS Other: All systems not noted in ROS Statement are negative. Past Medical History Past Medical History: Thyroid Disorder Additional Past Medical History / Comment(s): neck pain History of Any Multi-Drug Resistant Organisms: None Reported Past Surgical History: Cholecystectomy, Uterine Ablation Additional Past Surgical History / Comment(s): D & C, pain procedures Past Anesthesia/Blood Transfusion Reactions: Motion Sickness Past Psychological History: No Psychological Hx Reported Smoking Status: Never smoker Past Alcohol Use History: Occasional Past Drug Use History: None Reported - Past Family History Mother Family Medical History: No Reported History General Exam - General Exam Comments Initial Comments: General: Appears in no acute distress. HEAD: Normal with no signs of head trauma. EYES: EOMI ENT: Hearing grossly intact, normal oropharynx. RESPIRATORY: Clear breath sounds bilaterally. No wheezes, rales, or rhonchi. C/V: Regular rate and rhythm. S1 and S2 auscultated, no edema, peripheral pulses 2+ and intact throughout ABD: Abdomen is soft, nondistended. Tender to palpation in the right lower quad rant. No guarding or rebound tenderness. No peritoneal signs. EXT: Normal range of motion, no obvious deformity SKIN: No rashes or lesions observed on exposed skin. NEURO: Alert and oriented x 4. Limitations: no limitations Course Vital Signs 09/14/24 09/14/24 14:45 19:20 Temperature 97.5 F L Pulse Rate 117 H 82 Respiratory 16 17 Rate Blood Pressure 151/86 142/82 O2 Sat by Pulse 97 97 Oximetry Medical Decision Making - Medical Decision Making Was pt. sent in by a medical professional or institution (, PA, VIRTUAL ASSISTANT, urgent ca re, hospital, or halfway...) When possible be specific @ -Instructed by surgeon Dr. Schumacher to present for evaluation of abdominal pain Did you speak to anyone other than the patient for history (EMS, parent, family, police, friend...)? What history was obtained from this source @ -No Did you review nursing and triage notes (agree or disagree)? Why? @ -I reviewed and agree with nursing and triage notes Were old charts reviewed (outside hosp., previous admission, EMS record, old EKG, old radiological studies, urgent care reports/EKG's, halfway records)? Report findings @ -No old charts were reviewed Differential Diagnosis (chest pain, altered mental status, abdominal pain women, abdominal pain men, vaginal bleeding, weakness, fever, dyspnea, syncope, headache, dizziness, GI bleed, back pain, seizure, CVA, palpatations, mental health, musculoskeletal)? @ -Differential Abdominal Pain Women: Appendicitis, Cholecystitis, diverticulosis, ischemic bowel, pancreatitis, hepatitis, UTI, gastroenteritis, AAA, incarcerated hernia, bowel obstruction, constipation, inflammatory bowel, hepatitis, peptic ulcer disease, splenic infarction, perforated viscus, vulvitis, ovarian torsion, PID, kidney stone, placenta abruption, this is not meant to be an all-inclusive list EKG interpreted by me (3pts min.). @ -None done X-rays interpreted by me (1pt min.). @ -None done CT interpreted by me (1pt min.). @ -CT abdomen pelvis shows ascending colon diverticulitis that is uncomplic ated. Appendix is normal. Patient has an ovarian cyst, dominant follicle on the right ovary. No other obvious findings. Patient does have a right sided nephrolithiasis that is uncomplicated. U/S interpreted by me (1pt. min.). @ -None done What testing was considered but not performed or refused? (CT, X-rays, U/S, labs)? Why? @ -None What meds were considered but not given or refused? Why? @ -None Did you discuss the management of the patient with other professionals (professionals i.e. , PA, VIRTUAL ASSISTANT, lab, RT, psych nurse, rn social services, statistical modeler, teacher, community services officer, case liner)? Give summary @ -No Was smoking cessation discussed for >3mins.? @ -No Was critical care preformed (if so, how long)? @ -No Were there social determinants of health that impacted care today? How? (Homel essness, low income, unemployed, alcoholism, drug addiction, transportation, low edu. Level, literacy, decrease access to med. care, m[facility], rehab)? @ -No Was there de-escalation of care discussed even if they declined (Discuss DNR or withdrawal of care, Hospice)? DNR status @ -No What co-morbidities impacted this encounter? (DM, HTN, Smoking, COPD, CAD, Cancer, CVA, ARF, Chemo, Hep., AIDS, mental health diagnosis, sleep apnea, morbid obesity)? @ -None Was patient admitted / discharged? Hospital course, mention meds given and route, prescriptions, significant lab abnormalities, going to OR and other pertinent info. @ -Based on patient's presentation physical exam, presents emergency department with abdominal pain. Will obtain CT imaging as well as laboratory studies. Patient was symptomatic treated with IV fluids, Protonix, Zofran. She was in agreement this plan. CT imaging shows diverticulitis. Laboratory studies are remarkable for mild leukocytosis of 10.58. Remainder of labs unremarkable including negative test. Urine is contaminated. Discussed with the patient, patient has uncomplicated diverticulitis on workup. I updated her. She will be discharged home at this time. She will be given a dose of Augmentin prior to discharge and a prescription for Augmentin twice daily for 10 days as well as a prescription for ODT Zofran and Bentyl. Patient was in agreement this plan. I will provide the patient with a prescription for Augmentin, Bentyl, ODT Zofran starter pack. I instructed the patient to follow up with their PCP in the next 1-3 days.. I explained that the patient should return to the emergency department if they experience any worsening symptoms. Strict return precautions were discussed with the patient. The patient expressed understanding of these instructions. I answered all questions that the patient had. The patient was discharged home in good condition with their prescriptions and follow up information. Undiagnosed new problem with uncertain prognosis? @ -No Drug Therapy requiring intensive monitoring for toxicity (Heparin, Nitro, Insulin, Cardizem)? @ -No Were any procedures done? @ -No Diagnosis/symptom? @ -Diverticulitis Acute, or Chronic, or Acute on Chronic? @ -Acute Uncomplicated (without systemic symptoms) or Complicated (systemic symptoms)? @ -Uncomplicated Side effects of treatment? @ -No Exacerbation, Progression, or Severe Exacerbation? @ -No Poses a threat to life or bodily function? How? (Chest pain, [place], [place], pneumonia, PE, COPD, DKA, ARF, appy, cholecystitis, CVA, Diverticulitis, Homicidal, Suicida l, threat to staff... and all critical care pts) @ -Unlikely at this time - Lab Data Result diagrams: 09/14/24 15:17 09/14/24 15:17 Lab Results 09/14/24 09/14/24 09/14/24 Range/Units 15:17 15:17 15:17 WBC 10.58 H (4.50-10.00) 10*3/uL RBC 4.81 (4.10-5.20) 10*6/uL Hgb 14.1 (12.0-15.0) g/dL Hct 40.8 (37.2-46.3) % MCV 84.8 (80.0-97.0) fL MCH 29.3 (27.0-32.0) pg MCHC 34.6 (32.0-37.0) g/dL Plt Count 314 (140-440) 10*3/uL MPV 9.4 L (9.5-12.2) fL Immature Gran % (Auto) 0.3 % Neutrophils % 63.0 % Lymphocytes % 28.6 % Monocytes % 7.0 % Eosinophils % 0.7 % Basophils % 0.4 % Immature Gran # 0.03 (0.00-0.04) 10*3/uL Neutrophils # 6.67 (1.80-7.70) 10*3/uL Lymphocytes # 3.03 (0.90-5.00) 10*3/uL Monocytes # 0.74 (0.20-1.00) 10*3/uL Eosinophils # 0.07 (0.04-0.35) 10*3/uL Basophils # 0.04 (0.00-0.10) 10*3/uL Sodium 139 (137-145) mmol/L Potassium 3.7 (3.5-5.1) mmol/L Chloride 106 (98-107) mmol/L Carbon Dioxide 22 (22-30) mmol/L Anion Gap 11 mmol/L BUN 14 (7-17) mg/dL Creatinine 0.76 (0.52-1.04) mg/dL Est GFR (CKD-EPI)AfAm >90 (>60 ml/min/1.73 sqM) Est GFR (CKD-EPI)NonAf >90 (>60 ml/min/1.73 sqM) Glucose 115 H (74-99) mg/dL Plasma Lactic Acid Shane 1.2 (0.7-2.0) mmol/L Calcium 9.9 (8.4-10.2) mg/dL Total Bilirubin 0.9 (0.2-1.3) mg/dL AST 43 H (14-36) U/L ALT 43 H (4-34) U/L Alkaline Phosphatase 58 (38-126) U/L Total Protein 8.3 H (6.3-8.2) g/dL Albumin 5.0 (3.5-5.0) g/dL Amylase 60 (30-110) U/L Lipase 175 (23-300) U/L HCG, Qual Not Detected Urine Color Urine Appearance (Clear) Urine pH (5.0-8.0) Ur Specific [place] (1.001-1.035) Urine Protein (Negative) Urine Glucose (UA) (Negative) Urine Ketones (Negative) Urine Blood (Negative) Urine Nitrite (Negative) Urine Bilirubin (Negative) Urine Urobilinogen (<2.0) mg/dL Ur Leukocyte Esterase (Negative) Urine RBC (0-5) /hpf Urine WBC (0-5) /hpf Ur Squamous Epith Cells (0-4) /hpf Urine Bacteria (None) /hpf Urine Mucus (None) /hpf 09/14/24 Range/Units 16:14 WBC (4.50-10.00) 10*3/uL RBC (4.10-5.20) 10*6/uL Hgb (12.0-15.0) g/dL Hct (37.2-46.3) % MCV (80.0-97.0) fL MCH (27.0-32.0) pg MCHC (32.0-37.0) g/dL Plt Count (140-440) 10*3/uL MPV (9.5-12.2) fL Immature Gran % (Auto) % Neutrophils % % Lymphocytes % % Monocytes % % Eosinophils % % Basophils % % Immature Gran # (0.00-0.04) 10*3/uL Neutrophils # (1.80-7.70) 10*3/uL Lymphocytes # (0.90-5.00) 10*3/uL Monocytes # (0.20-1.00) 10*3/uL Eosinophils # (0.04-0.35) 10*3/uL Basophils # (0.00-0.10) 10*3/uL Sodium (137-145) mmol/L Potassium (3.5-5.1) mmol/L Chloride (98-107) mmol/L Carbon Dioxide (22-30) mmol/L Anion Gap mmol/L BUN (7-17) mg/dL Creatinine (0.52-1.04) mg/dL Est GFR (CKD-EPI)AfAm (>60 ml/min/1.73 sqM) Est GFR (CKD-EPI)NonAf (>60 ml/min/1.73 sqM) Glucose (74-99) mg/dL Plasma Lactic Acid Shane (0.7-2.0) mmol/L Calcium (8.4-10.2) mg/dL Total Bilirubin (0.2-1.3) mg/dL AST (14-36) U/L ALT (4-34) U/L Alkaline Phosphatase (38-126) U/L Total Protein (6.3-8.2) g/dL Albumin (3.5-5.0) g/dL Amylase (30-110) U/L Lipase (23-300) U/L HCG, Qual Urine Color Yellow Urine Appearance Cloudy H (Clear) Urine pH 5.5 (5.0-8.0) Ur Specific [place] 1.029 (1.001-1.035) Urine Protein Negative (Negative) Urine Glucose (UA) Negative (Negative) Urine Ketones Negative (Negative) Urine Blood Negative (Negative) Urine Nitrite Negative (Negative) Urine Bilirubin Negative (Negative) Urine Urobilinogen <2.0 (<2.0) mg/dL Ur Leukocyte Esterase Negative (Negative) Urine RBC 1 (0-5) /hpf Urine WBC 2 (0-5) /hpf Ur Squamous Epith Cells 12 H (0-4) /hpf Urine Bacteria Rare H (None) /hpf Urine Mucus Rare H (None) /hpf Disposition Clinical Impression: Diverticulitis Disposition: HOME SELF-CARE Condition: Good Instructions (If sedation given, give patient instructions): Diverticulitis (ED) Prescriptions: Amoxic-Pot Clav 875-125Mg [Augmentin 875-125] 1 tab PO Q12HR 10 Days #20 tab Dicyclomine [Bentyl] 10 mg PO TID PRN 7 Days #21 capsule PRN Reason: Pain Is patient prescribed a controlled substance at d/c from ED?: No Referrals: Anne Marie Alfonso MD [Primary Care Provider] - 1-2 days Jesus Schumacher MD [Medical Doctor] - 1-2 days Time of Disposition: 19:00
[2024-09-14] MEDS: ONDANSETRON 4 MG ODT STARTER PACK 2 TAB BTL PO STA (19:17)
[2024-09-14] MEDS: AMOXIC-POT CLAV 875-125MG 1 EACH TAB PO STA (19:18)
[2024-09-14 19:22] VITALS: BP 142/82; PULSE 82; RESP 17
== END 2024-09-14 19:23 | disposition home or self-care (01) ==
LOC: EC 14:41
DX: K57.32 Diverticulitis of large intestine without perforation or abscess without bleeding (principal); Z88.5 Allergy status to narcotic agent
CPT/HCPCS: 36415; 80053; 82150; 83605; 83690; 85025; 81001; 84703; 74177; 99284; 96374; 96375; 96361; J2405; S0119; Q9967; J2470

== ENCOUNTER → 2024-10-26 | Outpatient (CLI) | payer MEDICAID ==
--- NOTE | 2024-10-26 17:04 | MM ---
Reason for Exam: Screening (asymptomatic). Last mammogram was performed 1 year(s) and 5 month(s) ago. Patient History: Menarche at age 11. First Full-Term at age 26. Patient has history of breast feeding. Risk Values: Libby 5 year model risk: 0.9%. NCI Lifetime model risk: 10.6%. Prior Study Comparison: 04/05/2015 Bilateral Screening Mammogram, [facility]. 04/19/2015 Bilateral Diagnostic Mammogram, [facility]. 06/15/2021 Bilateral Screening Mammogram, [facility]. 05/29/2023 Bilateral MG 3D screening mammo w/cad, [facility]. Tissue Density: The breasts are heterogeneously dense, which may obscure small masses. Findings: Analyzed By CAD. Regional punctate calcifications in the anterior aspect of both breasts are unchanged. There is no suspicious group of microcalcifications or new suspicious mass in either breast. Overall Assessment: Benign, BI-RAD 2 Management: Screening Mammogram of both breasts in 1 year. Patient should continue monthly self-breast exams. A clinical breast exam by your physician is recommended on an annual basis. This exam should not preclude additional follow-up of suspicious palpable abnormalities. Note on Libby scores and lifetime risk: 1. A Libby score greater than 3% is considered moderate risk. If this is the case, consider specialist referral to assess eligibility for a risk reducing agent. 2. If overall lifetime risk for the development of breast cancer is 20% or higher, the patient may qualify for future screening with alternating mammogram and breast MRI. [facility], , 10/26/2024 5:01 PM. Electronically signed and approved by: Ar Smith M.D. Radiologist
== END | disposition home or self-care (01) ==
LOC: RADMAMWWP 09:49
PROVIDERS: ATTEND Obstetrics & Gynecology
DX: Z12.31 Encounter for screening mammogram for malignant neoplasm of breast (principal); R92.333 Mammographic heterogeneous density, bilateral breasts
CPT/HCPCS: 77063; 77067